=== PATIENT | male | born 1970 ===

== ENCOUNTER 2023-06-27 00:04 | Emergency (ER) | payer OTHER ==
[2023-06-27] MEDS ORDERED: Take Home: Cyclobenzaprine 10 MG Tab, 4 Tab Pack PO ONE (01:33)
[2023-06-27] MEDS ORDERED: Ketorolac 30 MG/ML SDV IM ONE (01:33)
[2023-06-27] MEDS ORDERED: Cyclobenzaprine 10 MG Tab PO ONE (01:33)
== END 2023-06-27 01:54 | disposition home or self-care (01) ==
LOC: DL.ED 00:04
DX: G24.3 Spasmodic torticollis (principal); F17.210 Nicotine dependence, cigarettes, uncomplicated
CPT/HCPCS: 96372; 99283; A9270-GY; J1885